=== PATIENT | female | born 1990 | race Caucasian/White ===

== ENCOUNTER 2017-11-29 10:06 | Emergency (ER) | payer SELFPAY ==
[2017-11-29 10:22] VITALS: BP 139/64; TEMP 97.5; O2SAT 98
[2017-11-29] MEDS ORDERED: TETRACAINE HCL 0.5% OPHTH SOL 1 DROP ONE (10:34)
--- NOTE | 2017-11-29 11:02 | ED.PDOC ---
History of Present Illness - General Chief Complaint: Eye Problems Stated Complaint: redness to right eye Time Seen by Provider: 11/29/17 10:23 Source: patient Exam Limitations: no limitations - History of Present Illness Initial Comments: Patient presents with right eye redness and pain since yesterday. She awoke this morning and it was more watery than before. There has been no green or purulent exudate. She says that it hurts when she "move" the eye. She also says that the pain goes from a "2" to a "7" when she looks at light. She has recently had an upper respiratory infections with green and clear nasal exudates. Denies previous episodes. 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 No other complaints. Timing/Duration: 24 hours Severity: moderate Improving Factors: rest Worsening Factors: movement Associated Symptoms: denies symptoms Allergies/Adverse Reactions: Allergies NO KNOWN ALLERGY Allergy (Verified 11/29/17 10:15) Home Medications: Ambulatory Orders NK [NK] 11/29/17 Review of Systems - Review of Systems Constitutional: States: no symptoms reported EENTM: States: see HPI Respiratory: States: no symptoms reported Cardiology: States: no symptoms reported Gastrointestinal/Abdominal: States: no symptoms reported Genitourinary: States: no symptoms reported Musculoskeletal: States: no symptoms reported Skin: States: no symptoms reported Neurological: States: no symptoms reported Endocrine: States: no symptoms reported Hematologic/Lymphatic: States: no symptoms reported Past Medical History (General) - Patient Medical History Hx Cardiac Disorders: No Hx Hypertension: No Hx Thyroid Disease: No Surgical History: other - Social History Hx Tobacco Use: Yes Family Medical History - Family History Mother Family History: No Known Physical Exam - Physical Exam General Appearance: Alert Eye Exam: right other - injected right sclera, bilateral normal - PERRLA, not mid-position, globe not hard to touch Ears, Nose, Throat: normal ENT inspection Neck: non-tender, full range of motion, supple Respiratory: lungs clear Cardiovascular/Chest: regular rate, rhythm Progress - Progress Progress: 11/29/17 10:58 Patient did not have jaw claudication nor right temporal headache. She is also not in the normal age range for temporal arteritis. However, I stressed the need for her to get tonometry and slit lamp exam due to her pain and photophobia. We do not have a working tonometer here. I suggested that she go to [facility] in [facility] so an opthmalmologist can examine her. She said she didn't have time to go to [facility] and that this was a "wasted trip". I assured her that the trip to [place] would be worth it but she could also go to other nearby [facility] and home hospitals who may have tonometer and/or opthalmology. I offered to call any hospital of her choice and arrange for her to be seen today. The patient was visibly angry at staff and left AMA. Departure - Departure Clinical Impression: Acute eye pain Disposition: Left Against Medical Advice Condition: Fair Departure Forms: ED Discharge - Pt. Copy, Patient Portal Self Enrollment Diet: other Activity: other Home Medications: Ambulatory Orders NK [NK] 11/29/17
== END 2017-11-29 10:45 | disposition left against medical advice (07) ==
LOC: ER 10:06
DX: H57.11 Ocular pain, right eye (principal); H53.141 Visual discomfort, right eye; Z53.29 Procedure and treatment not carried out because of patient's decision for other reasons; Z87.891 Personal history of nicotine dependence

== ENCOUNTER 2018-04-13 02:50 | Emergency (ER) | payer SELFPAY ==
[2018-04-13] MEDS ORDERED: SODIUM CHLORIDE 0.9% 1000ML 1,000 ML IVS ONE (03:09)
[2018-04-13] MEDS ORDERED: MORPHINE SULFATE INJ 10 MG/ML VIAL IV ONE (03:09)
[2018-04-13] MEDS ORDERED: PROMETHAZINE HCL INJ 25 MG in SODIUM CHLORIDE 0.9% 50ML 50 ML IVPB ONE (03:09)
[2018-04-13] MEDS ORDERED: ALUM & MAG HYDROX-SIMETHICONE 30 ML, LIDOCAINE VISCOUS 2% 15 ML PO ONE ×2 (03:10)
[2018-04-13] MEDS ORDERED: ALUM & MAG HYDROX-SIMETHICONE 30 ML UD ONE (03:22)
[2018-04-13] MEDS ORDERED: LIDOCAINE HCL 2% (MOUTH-THROAT) 15 ML UD ONE (03:22)
[2018-04-13] MEDS ORDERED: SODIUM CHLORIDE 0.9% 50ML 50 ML ONE (03:23)
[2018-04-13] MEDS ORDERED: PROMETHAZINE HCL INJ 25 MG/ML VIAL ONE (03:23)
--- NOTE | 2018-04-13 03:52 | RAD ---
EXAM: Acute abdominal series. INDICATION: Abdominal pain, acute. COMPARISON: None. FINDINGS: Cardiac silhouette: Unremarkable. Denisse: Unremarkable. Lobar consolidation: None. Pleural effusion: None. Pneumothorax: None. Other: None. Intraperitoneal free air: Negative. Bowel: No dilated loops of small bowel or air-fluid levels. Bones: Unremarkable. Other: None. IMPRESSION: 1. Nonspecific, nonobstructed bowel gas pattern. Electronically signed by: Kavin Mercedes MD 04/13/2018 3:49 AM [facility] Workstation: [id number]
--- NOTE | 2018-04-13 05:18 | CT ---
EXAM: CT abdomen and pelvis with contrast. INDICATION: Abdominal pain, acute. TECHNIQUE: Contiguous axial CT images of the abdomen and pelvis. Intravenous contrast: Present. Oral contrast: Absent. DLP 1332 mGy-cm. This exam was performed according to our departmental dose-optimization program, which includes automated exposure control, adjustment of the mA and/or kV according to patient size and/or use of iterative reconstruction technique. COMPARISON: None. FINDINGS: Lower chest: Partially imaged. Lung bases: Unremarkable. Cardiac apex: Unremarkable. Solid abdominal viscera: Liver: Unremarkable. Gallbladder: Distended with mildly hyperemic li. No calcified stone is identified. Pancreas: Unremarkable. Spleen: Unremarkable. Adrenal glands: Unremarkable. Right kidney: No hydronephrosis. Left kidney: No hydronephrosis. Urinary bladder: Unremarkable. Abdominal aorta: Unremarkable. Peritoneal: Free fluid: Trace Free air: None. Other: No pathologic sized lymph nodes in the upper abdomen. Bowel: Stomach: Unremarkable. Small bowel: Unremarkable. Appendix: Unremarkable. Colon: Unremarkable. Rectum: Unremarkable. Uterus: Unremarkable. Bones: Unremarkable. IMPRESSION: Distended gallbladder with mildly hyperemic li. If there is concern for acute cholecystitis, an ultrasound may be useful in further evaluation. Electronically signed by: Kavin Mercedes MD 04/13/2018 5:15 AM [employer] [employer] Workstation: [employer]
[2018-04-13] MEDS ORDERED: PIPERACILLIN/TAZOBACTAM 3.375 GM in SODIUM CHLORIDE 0.9% 100ML 100 ML IVPB ONE (06:24)
[2018-04-13] MEDS ORDERED: PIPERACILLIN/TAZOBACTAM 3.375 GM VIAL IVPB ONE (06:26)
[2018-04-13] MEDS ORDERED: SODIUM CHLORIDE 0.9% 100ML 100 ML IVPB ONE (06:26)
--- NOTE | 2018-04-13 06:45 | ED.PDOC ---
History of Present Illness - General Source: patient Exam Limitations: no limitations - History of Present Illness Initial Comments: the patient is a 27-year-old female presenting to the emergency room secondary to abdominal pain and intermittent fevers for the last 2-3 days. She reports a fever up to 102 2 days ago. Abdominal pain started out as more of a generalized pain, but has started to localize more to the right upper quadrant. She has had several episodes of nausea and vomiting over the last 12 hours.she does appear to have small peritoneal irritation but pain is most exquisite over the right upper quadrant. No definite palpable mass. No bruising of the abdominal wall. She has not vomited since her arrival here. Timing/Duration: unsure Severity: severe Improving Factors: nothing Worsening Factors: eating Associated Symptoms: diaphoresis, fever/chills, loss of appetite, malaise, nausea/vomiting, weakness <Jesus Willis - Last Filed: 04/13/18 06:42> <Luke Cesar - Last Filed: 04/13/18 09:22> - General Chief Complaint: Abdominal Pain Stated Complaint: RUQ pain radiating to the back onset 20-2099 Time Seen by Provider: 04/13/18 02:52 - History of Present Illness Allergies/Adverse Reactions: Allergies NO KNOWN ALLERGY Allergy (Verified 04/13/18 03:07) Home Medications: Ambulatory Orders Acetaminophen W/ Codeine [Tylenol w/Codeine 300-30 mg] 1 tab PO Q4HR #20 tab 04/13/18 Ampicillin 500 mg PO Q6HRS 10 Days #40 cap 04/13/18 Review of Systems - Review of Systems Constitutional: States: chills, fever, malaise, weakness - generalized EENTM: States: no symptoms reported Respiratory: States: no symptoms reported Cardiology: States: no symptoms reported Gastrointestinal/Abdominal: States: abdominal pain, nausea, vomiting. Denies: constipation, diarrhea Musculoskeletal: States: no symptoms reported Skin: States: no symptoms reported Neurological: States: no symptoms reported Endocrine: States: no symptoms reported All other Systems: No Change from Baseline <Jesus Willis - Last Filed: 04/13/18 06:42> Past Medical History (General) - Patient Medical History Hx Seizures: No Hx Stroke: No Hx Dementia: No Hx Asthma: No Hx of COPD: No Hx Cardiac Disorders: No Hx Congestive Heart Failure: No Hx Pacemaker: No Hx Hypertension: No Hx Thyroid Disease: No Hx Diabetes: No Hx Gastroesophageal Reflux: No Hx Renal Disease: No Hx Cancer: No Hx of HIV: No Hx Hepatitis C: No Hx MRSA: No Surgical History: other - Vaccination History Hx Tetanus, Diphtheria Vaccination: Yes Hx Influenza Vaccination: No - Social History Hx Tobacco Use: Yes - vapes - Female History Patient is a Female of Child Bearing Age (10 -59 yrs old): Yes <Jesus Willis - Last Filed: 04/13/18 06:42> Family Medical History - Family History Mother Family History: No Known <Jesus Willis - Last Filed: 04/13/18 06:42> Physical Exam - Physical Exam General Appearance: Alert, Obvious distress Eye Exam: bilateral normal Ears, Nose, Throat: hearing grossly normal, normal ENT inspection Neck: full range of motion, supple Respiratory: lungs clear, normal breath sounds, no respiratory distress, no accessory muscle use Cardiovascular/Chest: normal peripheral pulses, regular rate, rhythm, no edema Peripheral Pulses: radial,right: 2+, radial,left: 2+, dorsalis pedis,right: 2+, dorsalis pedis,left: 2+ Gastrointestinal/Abdominal: other - see history of present illness. 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 She is afebrile here but she has had Motrin. The patient has received IV fluids as well as stomach medications and anti- emetics. White blood cell count was not markedly elevated and the CT scan is somewhat difficult. The physical exam is highly concerning for gallbladder disease, so we will be holding the patient to obtain a right upper quadrant ultrasound while she is getting a dose of Zosyn this morning. Depending upon the results she may yet need evaluation with General surgery. Continue current medications. Continue hydration. Nothing by mouth status for now. Dr. Cesar will be assuming care. - Results/Orders Results/Orders: CT scan abdomen and pelvis shows mild hyperemia of the gallbladder wall. right upper quadrant ultrasound is recommended for further evaluation. 04/13/18 06:35 BLOOD CULTURE Stat Laboratory Results - last 24 hr 04/13/18 04/13/18 04/13/18 03:08 03:08 03:09 WBC RBC Hgb Hct MCV MCH MCHC RDW Plt Count MPV Absolute Neuts (auto) Absolute Lymphs (auto) Absolute Monos (auto) Absolute Eos (auto) Absolute Basos (auto) Neutrophils % Lymphocytes % Monocytes % Eosinophils % Basophils % Sodium 136 Potassium 3.7 Chloride 105 Carbon Dioxide 21 Anion Gap 13.7 BUN 11 Creatinine 0.76 BUN/Creatinine Ratio 14.5 Random Glucose 117 H Serum Osmolality 272.4 L Lactic Acid 0.8 Calcium 8.7 Total Bilirubin 0.3 AST 60 H ALT 77 H Alkaline Phosphatase 71 Serum Total Protein 7.4 Albumin 3.8 Globulin 3.6 H Albumin/Globulin Ratio 1.1 Amylase 29 Lipase 34 Serum HCG, Qual Negative Urine Color Urine Appearance Urine pH Ur Specific [place] Urine Protein Urine Glucose (UA) Urine Ketones Urine Blood Urine Nitrite Urine Bilirubin Urine Urobilinogen Ur Leukocyte Esterase Urine RBC Urine WBC Ur Epithelial Cells Urine Bacteria 04/13/18 04/13/18 03:15 04:52 WBC 4.6 L RBC 4.54 Hgb 13.1 Hct 39.3 MCV 86.7 MCH 28.9 MCHC 33.3 RDW 12.6 Plt Count 227 MPV 11.3 H Absolute Neuts (auto) 2.20 Absolute Lymphs (auto) 1.80 Absolute Monos (auto) 0.40 Absolute Eos (auto) 0.10 Absolute Basos (auto) 0.00 Neutrophils % 48.9 Lymphocytes % 40.0 Monocytes % 8.6 Eosinophils % 2.2 Basophils % 0.3 Sodium Potassium Chloride Carbon Dioxide Anion Gap BUN Creatinine BUN/Creatinine Ratio Random Glucose Serum Osmolality Lactic Acid Calcium Total Bilirubin AST ALT Alkaline Phosphatase Serum Total Protein Albumin Globulin Albumin/Globulin Ratio Amylase Lipase Serum HCG, Qual Urine Color Yellow Urine Appearance Clear Urine pH 6.5 Ur Specific [place] 1.010 Urine Protein Negative Urine Glucose (UA) Negative Urine Ketones Negative Urine Blood Moderate H Urine Nitrite Negative Urine Bilirubin Negative Urine Urobilinogen 0.2 Ur Leukocyte Esterase Negative Urine RBC 3-5 H Urine WBC 0 Ur Epithelial Cells 3-5 Urine Bacteria 0 <Jesus Willis - Last Filed: 04/13/18 06:42> - Results/Orders Results/Orders: Test result discuss with patient and also with Surgeon Dr. Jamison patient no longer hurting and will be followed up outpatient <Luke Cesar - Last Filed: 04/13/18 09:22> Departure <Jesus Willis - Last Filed: 04/13/18 06:42> - Departure Time of Disposition: 09:14 Diet: bland diet, other - Avoid greasy /spicy foods <Luke Cesar - Last Filed: 04/13/18 09:22> - Departure Clinical Impression: Abdominal pain Qualifiers: Abdominal location: right upper quadrant Qualified Code(s): R10.11 - Right upper quadrant pain Cholecystitis, acute with cholelithiasis Qualifiers: Biliary obstruction: without biliary obstruction Qualified Code(s): K80.00 - Calculus of gallbladder with acute cholecystitis without obstruction Disposition: Discharge to Home or Self Care Condition: Fair Departure Forms: ED Discharge - Pt. Copy, Patient Portal Self Enrollment Instructions: DI for Abdominal Pain-Adult, Gallstones (DC), Gallstones Prescriptions: Acetaminophen W/ Codeine [Tylenol w/Codeine 300-30 mg] 1 tab PO Q4HR #20 tab Ampicillin 500 mg PO Q6HRS 10 Days #40 cap Home Medications: Ambulatory Orders Acetaminophen W/ Codeine [Tylenol w/Codeine 300-30 mg] 1 tab PO Q4HR #20 tab 04/13/18 Ampicillin 500 mg PO Q6HRS 10 Days #40 cap 04/13/18 Additional Instructions: Return to Emergency Room[facility] [place] if symptoms worsens;Make an appointment with office today 13 Apr 2018
--- NOTE | 2018-04-13 08:51 | US ---
EXAM DESCRIPTION: Abdomen,Limited CLINICAL HISTORY: 27 years Female, suspect sahil , ruq pain, mild lft elev COMPARISON: CT abdomen and pelvis 04/13/2018 TECHNIQUE: Multiple sonographic images of the abdomen with color Doppler analysis. FINDINGS: Liver: The liver measures 16.6 cm. Parenchymal echogenicity is normal. The liver demonstrates a normal morphology. No hepatic masses. Biliary Tree: The gallbladder contains a gallstone measuring up to 2.4 cm. Gallbladder wall thickness measures 6 mm. No intrahepatic biliary dilatation. The common bile duct measures 4 mm. Pancreas: The visualized portions of the pancreas are normal. Right kidney: The right kidney is normal in size and location without hydronephrosis. Vasculature: The upper abdominal aorta and IVC are unremarkable. Abdominal cavity: There is no ascites. IMPRESSION: 1. Sonographic findings consistent with acute calculus cholecystitis. 2. Hepatomegaly. Electronically signed by: Murtaza Flores MD 04/13/2018 8:47 AM [employer]
[2018-04-13 09:44] VITALS: BP 107/65; TEMP 98.1; O2SAT 99
== END 2018-04-13 09:44 | disposition home or self-care (01) ==
LOC: ER 02:50
DX: K80.00 Calculus of gallbladder with acute cholecystitis without obstruction (principal); F17.290 Nicotine dependence, other tobacco product, uncomplicated
CPT/HCPCS: 36415; 74019; 74177; 76775; 80053; 81001; 82150; 83605; 83690; 84703; 85025; 87040; A4216; J2270; J2543; J2550; J7030; J7050

== ENCOUNTER 2018-10-05 01:34 | Emergency (ER) | payer SELFPAY ==
[2018-10-05 01:48] VITALS: TEMP 97.2
[2018-10-05] MEDS ORDERED: MORPHINE SULFATE INJ 10 MG/ML VIAL IV ONE (01:55)
[2018-10-05] MEDS ORDERED: PROMETHAZINE HCL INJ 25 MG in SODIUM CHLORIDE 0.9% 50ML 50 ML IVPB ONE (01:55)
[2018-10-05] MEDS ORDERED: SODIUM CHLORIDE 0.9% 1000ML 1,000 ML IVS ONE (01:55)
[2018-10-05] MEDS ORDERED: PIPERACILLIN/TAZOBACTAM 3.375 GM in SODIUM CHLORIDE 0.9% 100ML 100 ML IVPB ONE (01:57)
[2018-10-05] MEDS ORDERED: PIPERACILLIN/TAZOBACTAM 3.375 GM VIAL IVPB ONE (02:00)
[2018-10-05] MEDS ORDERED: PROMETHAZINE HCL INJ 25 MG/ML VIAL ONE (02:00)
[2018-10-05] MEDS ORDERED: SODIUM CHLORIDE 0.9% 100ML 100 ML IVPB ONE (02:01)
[2018-10-05] MEDS ORDERED: SODIUM CHLORIDE 0.9% 50ML 50 ML ONE (02:01)
--- NOTE | 2018-10-05 03:02 | RAD ---
CLINICAL HISTORY: abd pain nv, 4 hours COMPARISON: 04/13/2018. TECHNIQUE: XR ABDOMEN SUPINE AND ERECT WITH CHEST (ABD ACUTE SERIES) 10/05/2018 1:55 AM CDT FINDINGS: Bowel gas pattern is nonspecific. There are no abnormal radiopaque foreign bodies or abnormal calcifications. Osseous structures are grossly unremarkable. The heart is normal in size. Lungs are clear. IMPRESSION: No bowel obstruction. Electronically signed by: Jung Winn MD 10/05/2018 3:00 AM CDT
[2018-10-05] MEDS ORDERED: POTASSIUM CHLORIDE ELIXIR 20 MEQ/15 ML UD PO ONE (04:01)
--- NOTE | 2018-10-05 04:07 | ED.PDOC ---
History of Present Illness - General Source: patient Exam Limitations: no limitations - History of Present Illness Initial Comments: the patient is a 28-year-old female presenting to emergency room secondary to recurrence of severe right upper quadrant pain with some nausea and vomiting starting about 4 or 5 hours prior. No syncope. No definite fever. The patient has a known large gallstone and has had cholecystitis in the past that was treated with antibiotics. She was evaluated with at the time. Pain is again recurred in the right upper quadrant. No diarrhea. No abdominal pain elsewhere. No syncope or near syncope. No chest pain. Timing/Duration: 4-6 hours Severity: moderate Improving Factors: nothing Worsening Factors: eating Associated Symptoms: loss of appetite, malaise, nausea/vomiting <Jesus Willis - Last Filed: 10/05/18 06:52> <Nick Farah - Last Filed: 10/05/18 10:13> - General Chief Complaint: Abdominal Pain Stated Complaint: RUQ pain, pain goes across abd and back Time Seen by Provider: 10/05/18 01:48 - History of Present Illness Allergies/Adverse Reactions: Allergies NO KNOWN ALLERGY Allergy (Verified 10/05/18 01:48) Home Medications: Ambulatory Orders Dicyclomine HCl [Bentyl] 20 mg PO Q6HR PRN #20 tab 10/05/18 Review of Systems - Review of Systems Constitutional: States: no symptoms reported EENTM: States: no symptoms reported Respiratory: States: no symptoms reported Cardiology: States: no symptoms reported Gastrointestinal/Abdominal: States: see HPI Genitourinary: States: no symptoms reported Musculoskeletal: States: no symptoms reported Skin: States: no symptoms reported Neurological: States: no symptoms reported Endocrine: States: no symptoms reported All other Systems: No Change from Baseline <Jesus Willis - Last Filed: 10/05/18 06:52> Past Medical History (General) - Patient Medical History Hx Seizures: No Hx Stroke: No Hx Dementia: No Hx Asthma: No Hx of COPD: No Hx Cardiac Disorders: No Hx Congestive Heart Failure: No Hx Pacemaker: No Hx Hypertension: No Hx Thyroid Disease: No Hx Diabetes: No Hx Gastroesophageal Reflux: No Hx Renal Disease: No Hx Cancer: No Hx of HIV: No Hx Hepatitis C: No Hx MRSA: No Surgical History: no surgical history - Vaccination History Hx Tetanus, Diphtheria Vaccination: Yes Hx Influenza Vaccination: No Hx Pneumococcal Vaccination: No - Social History Hx Tobacco Use: Yes - vapes - Female History Hx Last Menstrual Period: 09/17/18 <Jesus Willis - Last Filed: 10/05/18 06:52> Family Medical History - Family History Mother Family History: No Known <Jesus Willis - Last Filed: 10/05/18 06:52> Physical Exam - Physical Exam General Appearance: Alert, Anxious Eye Exam: bilateral normal Ears, Nose, Throat: hearing grossly normal, normal ENT inspection Neck: full range of motion, supple Respiratory: lungs clear, normal breath sounds, no respiratory distress, no accessory muscle use Cardiovascular/Chest: normal peripheral pulses, regular rate, rhythm, no edema Peripheral Pulses: radial,right: 2+, radial,left: 2+, dorsalis pedis,right: 2+, dorsalis pedis,left: 2+ Gastrointestinal/Abdominal: soft, other - right upper quadrant tenderness to palpation Rectal Exam: deferred Back Exam: no CVA tenderness, no vertebral tenderness Extremity: normal range of motion, non-tender, normal inspection, no pedal edema, normal capillary refill 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 It is again suspected that she has an acute calculus cholecystitis. She is being hydrated. She has received a dose of Phenergan and morphine and is feeling significantly better as a result. She did receive a blood culture. She has been started on Zosyn. We will plan on obtaining a right upper quadrant ultrasound in the morning when it is available. After that, general surgery can be contacted for their opinion on this patient. it may be worth repeating liver function tests in the morning due to the short duration of her symptoms. 10/05/18 04:10 10/05/18 06:53 - Results/Orders Results/Orders: acute abdominal series appears benign. 10/05/18 02:20 BLOOD CULTURE Stat Laboratory Results - last 24 hr 10/05/18 10/05/18 10/05/18 01:55 01:55 02:02 WBC 13.4 H RBC 4.28 Hgb 12.8 Hct 37.6 MCV 87.8 MCH 29.9 MCHC 34.1 RDW 13.0 Plt Count 241 MPV 11.5 H Absolute Neuts (auto) 8.70 H Absolute Lymphs (auto) 3.60 H Absolute Monos (auto) 0.80 Absolute Eos (auto) 0.20 Absolute Basos (auto) 0.20 H Neutrophils % 64.6 Lymphocytes % 26.7 Monocytes % 6.0 Eosinophils % 1.5 Basophils % 1.2 Sodium Potassium Chloride Carbon Dioxide Anion Gap BUN Creatinine BUN/Creatinine Ratio Random Glucose Serum Osmolality Lactic Acid Calcium Total Bilirubin AST ALT Alkaline Phosphatase Serum Total Protein Albumin Globulin Albumin/Globulin Ratio Amylase Lipase Urine Color Yellow Urine Appearance Clear Urine pH 6.5 Ur Specific [place] 1.020 Urine Protein Negative Urine Glucose (UA) Negative Urine Ketones Negative Urine Blood Trace-lysed H Urine Nitrite Negative Urine Bilirubin Negative Urine Urobilinogen 0.2 Ur Leukocyte Esterase Negative Urine RBC 0 Urine WBC 0 Ur Epithelial Cells 5-10 Urine Bacteria Rare Urine HCG, Qual Negative 10/05/18 10/05/18 10/05/18 02:20 02:20 02:20 WBC RBC Hgb Hct MCV MCH MCHC RDW Plt Count MPV Absolute Neuts (auto) Absolute Lymphs (auto) Absolute Monos (auto) Absolute Eos (auto) Absolute Basos (auto) Neutrophils % Lymphocytes % Monocytes % Eosinophils % Basophils % Sodium 137 Potassium 3.1 L Chloride 106 Carbon Dioxide 23 Anion Gap 11.1 L BUN 10 Creatinine 0.94 BUN/Creatinine Ratio 10.6 Random Glucose 91 Serum Osmolality 272.4 L Lactic Acid 0.7 Calcium 8.8 Total Bilirubin 0.5 AST 24 ALT 18 Alkaline Phosphatase 60 Serum Total Protein 6.7 Albumin 3.9 Globulin 2.8 Albumin/Globulin Ratio 1.4 Amylase 21 L Lipase 30 Urine Color Urine Appearance Urine pH Ur Specific [place] Urine Protein Urine Glucose (UA) Urine Ketones Urine Blood Urine Nitrite Urine Bilirubin Urine Urobilinogen Ur Leukocyte Esterase Urine RBC Urine WBC Ur Epithelial Cells Urine Bacteria Urine HCG, Qual <Jesus Willis - Last Filed: 10/05/18 06:52> - Progress Progress: 10/05/18 10:02 PT FEELS MUCH BETTER. ABDOMEN IS SOFT NTTP. SHE DOES C/O SOME RESIDUAL PAIN. ADVISED WE CONTACT SURGERY HOWEVER PT DOES NOT WANT ANY SURGERY AT THIS TIME AND PREFERS TO GO HOME. ADVISED HER TO STAY ON CLEAR LIQUIDS FOR 48 HOURS, IF PAIN CONTINUES, WORSENS OR SHE DEVELOPS FEVER, N/V. SHE AGREES. - EKG/XRAY/CT Xray Comments: ABD SONO, THICKENED GB WALL, NO FREE FLUID NL CBD <Nick Farah - Last Filed: 10/05/18 10:13> Departure <Jesus Willis - Last Filed: 10/05/18 06:52> - Departure Time of Disposition: 10:08 <Nick Farah - Last Filed: 10/05/18 10:13> - Departure Clinical Impression: Hypokalemia Calculus of gallbladder with cholecystitis Qualifiers: Cholecystitis acuity: acute and chronic Biliary obstruction: without biliary obstruction Qualified Code(s): K80.12 - Calculus of gallbladder with acute and chronic cholecystitis without obstruction Disposition: Discharge to Home or Self Care Condition: Good Departure Forms: ED Discharge - Pt. Copy, Patient Portal Self Enrollment Instructions: Gallstones (DC) Prescriptions: Dicyclomine HCl [Bentyl] 20 mg PO Q6HR PRN #20 tab PRN Reason: Abdominal Cramping Home Medications: Ambulatory Orders Dicyclomine HCl [Bentyl] 20 mg PO Q6HR PRN #20 tab 10/05/18
[2018-10-05] MEDS ORDERED: KCL 20 MEQ/NS 1,000 ML IVS ONE (04:08)
--- NOTE | 2018-10-05 08:47 | US ---
EXAM DESCRIPTION: Abdomen,Limited: ULTRASOUND. CLINICAL HISTORY: acute cholecystitis. Right upper quadrant abdominal pain. COMPARISON: Abdominal radiograph earlier today. Ultrasound abdomen 05/11/2018. TECHNIQUE: Transabdominal scanning: tyson-scale and Doppler modes. FINDINGS: Gallbladder: At least 2 stones in the body of the gallbladder with the largest measuring 2.3 cm. Mobile with patient change in position with acoustic shadowing. A third gallstone is in the neck of the gallbladder or cystic duct measuring 1.5 cm also with acoustic shadowing. No fluid around the gallbladder. Wall thickening 3.7 mm tender with transducer pressure. Common bile duct: caliber 4.5 mm within normal limits. Liver: normal echogenicity; contour liver capsule smooth where seen. No fluid around the liver. Intrahepatic biliary ducts normal caliber. Doppler hepatopedal flow and normal caliber portal vein.. Long axis right lobe 16.4 cm. Pancreas: normal size and echogenicity. Duct not seen. Proximal abdominal aorta: Not seen.. IVC: visualized and normal caliber. Right kidney: long axis measures 8.7 cm. Normal cortical Echogenicity. Normal cortical thickness. No hydronephrosis, echogenic stones, or perirenal fluid. IMPRESSION: 1. Cholelithiasis and acute cholecystitis with wall thickening, multiple stones, and tender with transducer pressure. The stone is also visible in the neck or cystic duct. No free fluid. Common bile duct not dilated. 2. Liver, pancreas,, and right kidney are unremarkable. Electronically signed by: Rubio Solis MD 10/05/2018 8:45 AM CDT
[2018-10-05 10:26] VITALS: BP 104/62; O2SAT 99
== END 2018-10-05 10:26 | disposition home or self-care (01) ==
LOC: ER 01:34
DX: K80.12 Calculus of gallbladder with acute and chronic cholecystitis without obstruction (principal); E87.6 Hypokalemia; R11.2 Nausea with vomiting, unspecified; F17.290 Nicotine dependence, other tobacco product, uncomplicated
CPT/HCPCS: 36415; 74019; 76775; 80053; 81001; 81025; 82150; 83605; 83690; 85025; 87040; A4216; J2270; J2543; J2550; J3480; J7030; J7050

== ENCOUNTER 2018-12-13 21:50 | Emergency (ER) | payer SELFPAY ==
[2018-12-13] MEDS ORDERED: ONDANSETRON INJ 4 MG/2 ML VIAL IV ONE (21:59)
[2018-12-13] MEDS ORDERED: SODIUM CHLORIDE 0.9% (FLUSH) 10 ML SYG IV PRN (21:59)
[2018-12-13] MEDS ORDERED: ACETAMINOPHEN IV 1000MG 1,000 MG in PREMIX BOTTLE 1 BOTTLE IVPB ONE (22:00)
[2018-12-13 22:03] VITALS: TEMP 98.1
--- NOTE | 2018-12-13 22:05 | ED.PDOC ---
History of Present Illness - General Chief Complaint: Abdominal Pain Stated Complaint: right upper abdomen pain Time Seen by Provider: 12/13/18 21:53 Information Source: patient Exam Limitations: no limitations - History of Present Illness Initial Comments: 28-year-old female presents to the emergency department complaining of right upper quadrant abdominal pain onset 2 hours ago. The patient has a known history of cholelithiasis and reports the pain is similar to previous episodes, but she has been unable to get her GB removed due to cost. She did see Dr. Jamison in the office at one point but has not been able to go back. She reports eating shredded chicken and broth prior to symptom onset. She denies any associated nausea, vomiting, diarrhea or fevers. Pain is waxing and waning and nothing she does seems to make it significantly better or worse, she did try [id number] ibuprofen and apple cider vinegar without improvement in her symptoms. Pain is currently rated as 7/10 in severity and described as sharp. Review of Systems - Review of Systems Constitutional: Denies: chills, fever EENTM: Denies: nose congestion, throat pain Respiratory: Denies: cough, short of breath Cardiology: Denies: chest pain, palpitations Gastrointestinal/Abdominal: States: abdominal pain, nausea. Denies: diarrhea - RUQ, vomiting Genitourinary: Denies: dysuria, hematuria Musculoskeletal: Denies: back pain, muscle pain Skin: Denies: lesions, rash Neurological: Denies: headache, numbness, weakness Past Medical History (General) - Patient Medical History Hx Seizures: Yes - 1 age 18 Hx Stroke: No Hx Dementia: No Hx Asthma: No Hx of COPD: No Hx Cardiac Disorders: No Hx Congestive Heart Failure: No Hx Pacemaker: No Hx Hypertension: No Hx Thyroid Disease: No Hx Diabetes: No Hx Gastroesophageal Reflux: No Hx Renal Disease: No Hx Cancer: No Hx of HIV: No Hx Hepatitis C: No Hx MRSA: No Surgical History: no surgical history - Vaccination History Hx Tetanus, Diphtheria Vaccination: Yes Hx Influenza Vaccination: No Hx Pneumococcal Vaccination: No - Social History Hx Tobacco Use: Yes - vapes - Female History Hx Last Menstrual Period: 09/17/18 Family Medical History - Family History Mother Family History: No Known Physical Exam - Physical Exam General Appearance: Alert, Well Developed, Well Nourished Eyes, Ears, Nose, Throat Exam: PERRL/EOMI, normal ENT inspection, pharynx normal Neck: full range of motion, normal inspection Respiratory: lungs clear, normal breath sounds, no respiratory distress Cardiovascular/Chest: regular rate, rhythm, no edema, no murmur Gastrointestinal/Abdominal: soft, tenderness - RUQ, other Back Exam: normal inspection Extremity: normal range of motion, normal inspection, no pedal edema Neurologic: alert, oriented x 3, other - Moves all extremities without focal deficits. Comments: Triage Vital Signs 12/13/18 21:55 Temperature 98.1 F Pulse Rate [ 74 monitor] Respiratory 20 Rate Blood Pressure 100/79 [Left Arm] O2 Sat by Pulse 99 Oximetry Progress - Progress Progress: 12/13/18 22:13 Old record review: Patient was seen in 03/2018 and 10/05/18 for right upper qu adrant abdominal pain. Laboratory data from 10/04 revealed a mild leukocytosis and liver function and lipase. Right upper quadrant ultrasound from 10/04 showed cholelithiasis with acute cholecystitis and gallbladder wall thickening with multiple stones. There was no common bile duct dilation. Patient refused surgical consultation and was discharged home with prescription for Bentyl. 12/13/18 22:57 Pt recheck. Lab results discussed. Pt says pain slightly improved to 4/10 at this time. Will add toradol. CT results pending at this time. 12/13/18 23:31 Pt recheck: Updated pt on CT findings. Repeat exam pt with no lower abd TTP, pain remains in RUQ and I do not think that pelvic imaging is indicated ad this time. She was able to get a ride so will give narcotic pain meds now. Discussed plan to call [facility] consultant surgeon. 12/13/18 23:39 Spoke with José Miguel Oropeza universal branch consultant for general surgery. Recommends pain control in ED, pain and nausea meds at home and have pt call office tomorrow. He will have office geriatric social work professor work with pt to see what arrangements can be made to facilitate cholecystectomy. 12/13/18 23:56 Patient recheck: Pain improved after fentanyl. Updated pt on phone conversation and plan for discharge and outpatient follow-up. The patient was encouraged to call Dr. Valdez's office as soon as possible. She was given biliary colic discharge instructions as well as instructions on low fat diet. She was told to return to the emergency department for severe or worsening pain, fevers, vomiting or any other concerning signs or symptoms. The patient has voiced understanding and agrees with the treatment plan. - Results/Orders Results/Orders: 12/13/18 21:59 IV Care:Saline Lock per Protoc QSHIFT Sodium Chloride 0.9% (Flush) [Saline Flush Syringe] 10 ml IV PRN PRN EKG Assessment ONCE URINALYSIS Stat 12/13/18 22:00 EKG STAT 12/13/18 22:09 Hold Metformin x 48Hrs [id number] Abdomen/Pelvis w/Contrast [CT] Stat Laboratory Results - last 24 hr 12/13/18 12/13/18 12/13/18 22:10 22:10 22:10 WBC 9.5 RBC 4.48 Hgb 13.1 Hct 38.8 MCV 86.6 MCH 29.3 MCHC 33.8 RDW 13.2 Plt Count 245 MPV 11.7 H Absolute Neuts (auto) 5.80 Absolute Lymphs (auto) 2.80 Absolute Monos (auto) 0.60 Absolute Eos (auto) 0.20 Absolute Basos (auto) 0.10 Neutrophils % 60.9 Lymphocytes % 29.3 Monocytes % 6.4 Eosinophils % 2.5 Basophils % 0.9 Sodium 134 L Potassium 3.7 Chloride 106 Carbon Dioxide 18 L Anion Gap 13.7 BUN 7 Creatinine 0.84 BUN/Creatinine Ratio 8.3 L Random Glucose 108 H Serum Osmolality 266.7 L Calcium 8.8 Total Bilirubin 0.4 Direct Bilirubin 0.1 Indirect Bilirubin 0.3 AST 27 ALT 19 Alkaline Phosphatase 61 Serum Total Protein 7.0 Albumin 3.9 Lipase 36 Serum HCG, Qual Negative EKG: Interpreted by myself at 2254. NSR rate 69. Nl axis, nl intervals. No ST elevation and non-specific ST-T changes. CT Abd/Pelvis: IMPRESSION: Multiple gallstones in the gallbladder. If there is clinical concern for the possibility of cholecystitis, sonography or nuclear medicine imaging could be obtained to better evaluate. Increased density fluid in the pelvis suggesting a small amount of hemoperitoneum. This could be from a ruptured ovarian cyst. Sonography could be obtained to better evaluate the pelvis if indicated. Electronically signed by: Irvin Dejesus MD 12/13/2018 11:24 PM CDT - Consult/PCP Time Called: 23:36 Consult/PCP: Dr. Hernandez, universal branch consultant for general surgery Departure - Departure Clinical Impression: Biliary colic, Ruptured ovarian cyst, RUQ abdominal pain Cholelithiasis Qualifiers: Cholelithiasis location: gallbladder Cholecystitis presence: without cholecystitis Biliary obstruction: without biliary obstruction Qualified Code(s): K80.20 - Calculus of gallbladder without cholecystitis without obstruction Time of Disposition: 23:56 Disposition: Discharge to Home or Self Care Condition: Fair Departure Forms: ED Discharge - Pt. Copy, Patient Portal Self Enrollment Instructions: Ovarian Cysts, Gallstones Diet: other - Low fat Referrals: Marcus Valdez MD [Active Staff] - 1-2 Days [facility] [Outside] - 1-5 Days (To establish care with a PCP) Prescriptions: Acetaminophen W/ Codeine [Tylenol W/ CODEINE #3] 1 ea PO Q8H PRN #15 PRN Reason: Pain Hyoscyamine Sulfate [Levsin] 0.125 mg PO Q8H PRN #15 tab PRN Reason: Pain Ibuprofen 800 mg PO Q8H PRN #30 tab PRN Reason: Pain Ondansetron HCl [Zofran] 4 mg PO Q8H PRN #10 tab PRN Reason: Nausea Home Medications: Ambulatory Orders Acetaminophen W/ Codeine [Tylenol W/ CODEINE #3] 1 ea PO Q8H PRN #15 12/13/18 Hyoscyamine Sulfate [Levsin] 0.125 mg PO Q8H PRN #15 tab 12/13/18 Ibuprofen 800 mg PO Q8H PRN #30 tab 12/13/18 Ondansetron HCl [Zofran] 4 mg PO Q8H PRN #10 tab 12/13/18 Additional Instructions: Take medications as directed. Call Dr. Valdez's office tomorrow to arrange follow up as soon as possible. Return to the ED for significant worsening of pain, fevers, vomiting or other concerns. Comments: DO Zak Feliz#[id number]
[2018-12-13] MEDS ORDERED: ACETAMINOPHEN IV 1000MG 100 ML ONE (22:15)
[2018-12-13 23:00] VITALS: O2SAT 98
[2018-12-13] MEDS ORDERED: KETOROLAC TROMETHAMINE INJ 30 MG/ML VIAL IV ONE (23:00)
--- NOTE | 2018-12-13 23:26 | CT ---
EXAM DESCRIPTION: Abdomen/Pelvis w/Contrast CLINICAL HISTORY: 28 years Female RUQ pain COMPARISON: 04/13/2018. TECHNIQUE: Contiguous axial images obtained through the abdomen and pelvis following IV contrast. Reformatted images obtained. This exam was performed according to our department optimization program which includes automated exposure control, adjustment of the mA and/or kv according to patient size and/or use of iterative reconstruction technique. FINDINGS: The lung bases are clear. The liver appears unremarkable. The spleen and pancreas appear unremarkable. No adrenal masses. The kidneys appear unremarkable. No hydronephrosis. Gallstones in the gallbladder. No aneurysmal dilatation of the aorta. No bowel obstruction. The appendix appears unremarkable. There is increased density free fluid in the pelvis suggesting a small amount of hemoperitoneum. This could be from a ruptured ovarian cyst. Degenerative changes in the spine. IMPRESSION: Multiple gallstones in the gallbladder. If there is clinical concern for the possibility of cholecystitis, sonography or nuclear medicine imaging could be obtained to better evaluate. Increased density fluid in the pelvis suggesting a small amount of hemoperitoneum. This could be from a ruptured ovarian cyst. Sonography could be obtained to better evaluate the pelvis if indicated. Electronically signed by: Irvin Dejesus MD 12/13/2018 11:24 PM CDT
[2018-12-13] MEDS ORDERED: fentaNYL CITRATE INJ 50 MCG/ML AMP IV ONE (23:30)
[2018-12-13 23:41] VITALS: BP 131/79
== END 2018-12-14 00:14 | disposition home or self-care (01) ==
LOC: ER 21:50
DX: K80.20 Calculus of gallbladder without cholecystitis without obstruction (principal); N83.209 Unspecified ovarian cyst, unspecified side; F17.290 Nicotine dependence, other tobacco product, uncomplicated
CPT/HCPCS: 74177; 80048; 80076; 81001; 83690; 84703; 85025; 93005; J1885; J2405; J3010

== ENCOUNTER 2019-11-03 00:53 | Emergency (ER) | payer SELFPAY ==
[2019-11-03] MEDS: SODIUM CHLORIDE 0.9% 1000ML 1,000 ML IVS ONE ×2 (01:26→02:26)
[2019-11-03] MEDS: PROMETHAZINE HCL INJ 25 MG in SODIUM CHLORIDE 0.9% 50ML 50 ML IVPB ONE (01:26)
[2019-11-03] MEDS: KETOROLAC TROMETHAMINE INJ 30 MG/ML VIAL IV ONE (01:26)
[2019-11-03] MEDS: MORPHINE SULFATE INJ 10 MG/ML VIAL IV ONE (02:26)
[2019-11-03] MEDS: cefTRIAXone SODIUM 1 GM in SODIUM CHL 0.9% 50ML MIN-BAG+ 50 ML IVPB ONE (02:40)
[2019-11-03] MEDS ORDERED: KETOROLAC TROMETHAMINE INJ 30 MG/ML VIAL ONE (07:00)
[2019-11-03] MEDS ORDERED: DEXAMETHASONE INJ 10 MG/ML VIAL ONE (07:00)
[2019-11-03] MEDS ORDERED: ceFAZolin SODIUM 1 GM VIAL ONE (07:00)
[2019-11-03] MEDS ORDERED: MAGNESIUM SULFATE INJ 1 GM/2 ML VIAL ONE (07:00)
[2019-11-03] MEDS ORDERED: LIDOCAINE 1% 10 ML VIAL INJ ONE (07:00)
[2019-11-03] MEDS ORDERED: PROPOFOL 200 MG/20 ML VIAL IV ONE (07:00)
--- NOTE | 2019-11-03 07:02 | ED.PDOC ---
History of Present Illness - General Chief Complaint: Abdominal Pain Stated Complaint: abd pain, Hx gallstones Time Seen by Provider: 11/03/19 01:12 Source: patient Exam Limitations: no limitations - History of Present Illness Initial Comments: The patient is a 29-year-old female presented emergency room secondary to acute onset nausea vomiting and right upper quadrant pain 2 hours prior to arrival. The patient reports the pain is consistent with her previous pain from her gallbladder. The patient has had at least 4 episodes in the past and has so far deferred cholecystectomy. The patient has been on rounds of antibiotics in the past. The patient is denying any fevers. She was feeling fine until the acute onset. No significant history of any pancreatitis. No vomiting of blood or bile. Pain is fairly well localized to the epigastric and right upper quadrant. Patient is actively vomiting upon arrival. Timing/Duration: 1-3 hours Severity: severe Improving Factors: nothing Worsening Factors: eating Associated Symptoms: diaphoresis, loss of appetite, malaise, nausea/vomiting Allergies/Adverse Reactions: Allergies NO KNOWN ALLERGY Allergy (Verified 11/03/19 01:07) Home Medications: Ambulatory Orders NK 11/03/19 Review of Systems - Review of Systems Constitutional: States: malaise EENTM: States: no symptoms reported Respiratory: States: no symptoms reported Cardiology: States: no symptoms reported Gastrointestinal/Abdominal: States: see HPI Genitourinary: States: no symptoms reported Musculoskeletal: States: no symptoms reported Skin: States: no symptoms reported Neurological: States: no symptoms reported Endocrine: States: no symptoms reported All other Systems: No Change from Baseline Past Medical History (General) - Patient Medical History Hx Seizures: Yes - 1 age 18 Hx Stroke: No Hx Dementia: No Hx Asthma: No Hx of COPD: No Hx Cardiac Disorders: No Hx Congestive Heart Failure: No Hx Pacemaker: No Hx Hypertension: No Hx Thyroid Disease: No Hx Diabetes: No Hx Gastroesophageal Reflux: No Hx Renal Disease: No Hx Cancer: No Hx of HIV: No Hx Hepatitis C: No Hx MRSA: No Surgical History: other - Vaccination History Hx Tetanus, Diphtheria Vaccination: Yes - 2013 Hx Influenza Vaccination: No Hx Pneumococcal Vaccination: No - Social History Hx Tobacco Use: Yes - vapes Hx Alcohol Use: Yes - occasional - Female History Hx Last Menstrual Period: 09/17/18 Family Medical History - Family History Mother Family History: No Known Physical Exam - Physical Exam General Appearance: Alert, Anxious, Obvious distress Eye Exam: bilateral normal Ears, Nose, Throat: hearing grossly normal, normal pharynx Neck: non-tender, supple Respiratory: lungs clear, normal breath sounds, no respiratory distress, no accessory muscle use Cardiovascular/Chest: normal peripheral pulses, regular rate, rhythm, no edema Peripheral Pulses: radial,right: 2+, radial,left: 2+ Gastrointestinal/Abdominal: soft - When the patient is not throwing up, other - See history of present illness. Patient is moderately obese. Rectal Exam: deferred Back Exam: no vertebral tenderness, CVA tenderness (R) - Borderline Extremity: normal range of motion, non-tender, normal inspection, no pedal edema, normal capillary refill Neurologic: search manager II-XII nml as tested, alert, normal mood/affect, oriented x 3 Skin Exam: normal color Comments: Vital Signs - 24 hr 11/03/19 11/03/19 11/03/19 00:58 02:00 03:00 Temperature 96.6 F L 96.9 F L Pulse Rate [ 68 56 L 58 L monitor] Respiratory 20 16 16 Rate Blood Pressure 145/93 124/82 114/61 [Left Arm] O2 Sat by Pulse 100 100 98 Oximetry 11/03/19 11/03/19 11/03/19 04:00 05:00 06:00 Temperature Pulse Rate [ 61 58 L 55 L monitor] Respiratory 16 16 16 Rate Blood Pressure 109/63 101/56 115/54 [Left Arm] O2 Sat by Pulse 99 99 97 Oximetry Progress - Progress Progress: 11/03/19 07:03 The patient is a 29-year-old female presented emergency room secondary to acute onset nausea vomiting and right upper quadrant pain. This is consistent with her intermittent exacerbations of cholecystitis due to her gallstones. So far she has been able to defer surgery without serious consequences. The patient has received a couple of liters of IV fluids here as well as pain medications and nausea medications. She is starting to feel better but does still have some right upper quadrant discomfort. We are repeating laboratory work this morning to make sure there is been no significant rise in liver function tests or amylase or lipase. The patient will be receiving a right upper quadrant ultrasound once the endo tech arrives. She will likely warrant a general surgery visit at least after that is completed. The patient did receive 1 dose of Zosyn and has received one blood culture. The patient will be followed by the oncoming ER doctor. Vital signs have remained stable. [email or web address] - Results/Orders Results/Orders: Laboratory Tests 11/03/19 11/03/19 11/03/19 01:10 01:10 01:10 WBC 12.4 H RBC 4.64 Hgb 13.8 Hct 40.9 MCV 88.3 MCH 29.7 MCHC 33.6 RDW 13.4 Plt Count 244 MPV 11.2 H Absolute Neuts (auto) 7.90 H Absolute Lymphs (auto) 3.40 Absolute Monos (auto) 0.70 Absolute Eos (auto) 0.40 Absolute Basos (auto) 0.10 Neutrophils % 63.8 Lymphocytes % 27.2 Monocytes % 5.5 Eosinophils % 2.9 Basophils % 0.6 Sodium 139 Potassium 3.8 Chloride 109 Carbon Dioxide 22 Anion Gap 11.8 L BUN 16 Creatinine 0.90 BUN/Creatinine Ratio 17.8 Random Glucose 96 Serum Osmolality 278.6 Calcium 9.2 Total Bilirubin 0.6 Direct Bilirubin 0.1 Indirect Bilirubin 0.5 AST 20 ALT 13 Alkaline Phosphatase 61 Serum Total Protein 7.3 Albumin 4.4 Globulin 2.9 Albumin/Globulin Ratio 1.5 Amylase 32 Lipase 29 Serum HCG, Qual Urine Color Yellow Urine Appearance Sl cloudy Urine pH 5.5 Ur Specific [place] >= 1.030 Urine Protein Negative Urine Glucose (UA) Negative Urine Ketones Negative Urine Blood Trace-intact H Urine Nitrite Negative Urine Bilirubin Negative Urine Urobilinogen 1.0 Ur Leukocyte Esterase Small H Urine RBC 1-3 Urine WBC 3-5 H Ur Epithelial Cells 3-5 Urine Bacteria Rare 11/03/19 01:10 WBC RBC Hgb Hct MCV MCH MCHC RDW Plt Count MPV Absolute Neuts (auto) Absolute Lymphs (auto) Absolute Monos (auto) Absolute Eos (auto) Absolute Basos (auto) Neutrophils % Lymphocytes % Monocytes % Eosinophils % Basophils % Sodium Potassium Chloride Carbon Dioxide Anion Gap BUN Creatinine BUN/Creatinine Ratio Random Glucose Serum Osmolality Calcium Total Bilirubin Direct Bilirubin Indirect Bilirubin AST ALT Alkaline Phosphatase Serum Total Protein Albumin Globulin Albumin/Globulin Ratio Amylase Lipase Serum HCG, Qual Negative Urine Color Urine Appearance Urine pH Ur Specific [place] Urine Protein Urine Glucose (UA) Urine Ketones Urine Blood Urine Nitrite Urine Bilirubin Urine Urobilinogen Ur Leukocyte Esterase Urine RBC Urine WBC Ur Epithelial Cells Urine Bacteria Departure - Departure Clinical Impression: Abdominal pain Qualifiers: Abdominal location: right upper quadrant Qualified Code(s): R10.11 - Right upper quadrant pain Disposition: Discharge to Home or Self Care Departure Forms: ED Discharge - Pt. Copy, Patient Portal Self Enrollment Home Medications: Ambulatory Orders NK 11/03/19
--- NOTE | 2019-11-03 07:56 | ED.PDOC ---
History of Present Illness - General Chief Complaint: Abdominal Pain Stated Complaint: abd pain, Hx gallstones Time Seen by Provider: 11/03/19 01:12 - History of Present Illness Abdominal Pain Onset Location: RUQ Pain Radiation: back Quality: moderate Timing/Duration: 4-6 hours Improving Factors: medication Worsening Factors: eating Associated Symptoms: nausea/vomiting Review of Systems - Review of Systems Constitutional: Denies: chills, fever Respiratory: Denies: cough, short of breath Cardiology: Denies: chest pain Gastrointestinal/Abdominal: States: abdominal pain, nausea, vomiting Genitourinary: Denies: dysuria, frequency Musculoskeletal: Denies: back pain, neck pain Neurological: Denies: headache Hematologic/Lymphatic: Denies: anemia Past Medical History (General) - Patient Medical History Hx Seizures: Yes - 1 age 18 Hx Stroke: No Hx Dementia: No Hx Asthma: No Hx of COPD: No Hx Cardiac Disorders: No Hx Congestive Heart Failure: No Hx Pacemaker: No Hx Hypertension: No Hx Thyroid Disease: No Hx Diabetes: No Hx Gastroesophageal Reflux: No Hx Renal Disease: No Hx Cancer: No Hx of HIV: No Hx Hepatitis C: No Hx MRSA: No Surgical History: other - Vaccination History Hx Tetanus, Diphtheria Vaccination: Yes - 2013 Hx Influenza Vaccination: No Hx Pneumococcal Vaccination: No - Social History Hx Tobacco Use: Yes - vapes Hx Alcohol Use: Yes - occasional - Female History Hx Last Menstrual Period: 09/17/18 Family Medical History - Family History Mother Family History: No Known Physical Exam - Physical Exam General Appearance: Alert, Comfortable, No apparent distress Neck: non-tender, full range of motion, supple Respiratory: chest non-tender, lungs clear, normal breath sounds, no respiratory distress, no accessory muscle use Cardiovascular/Chest: normal peripheral pulses, regular rate, rhythm, no edema, no murmur Peripheral Pulses: 2+ Gastrointestinal/Abdominal: normal bowel sounds, soft Rectal Exam: deferred Neurologic: no motor/sensory deficits, alert, normal mood/affect, oriented x 3 Skin Exam: normal color, warm/dry Progress - Progress Progress: 11/03/19 07:48 Patient resting comfortably, patient has received 30 mg toradol, 2mg morphine, phenergan. NO peritoneal signs as of now. NO rebound or guarding. negative holguin sign. Repeat blood work pending Patient given rocephin, will add flagyl. 11/03/19 07:56 Repeat blood work shows normal lfts. Pending RUQ ultrasound and re-evaluation at that time. Declines more pain medication at this time. RUQ shows 4mm gbw, cbd 4mm, some sludge, gallstones. Will contact Dr. Jamison to discuss. Patient to OR for cholecystectomy. 11/03/19 11:05 11/03/19 06:27 Abdomen,Limited [US] Stat 11/03/19 06:42 BLOOD CULTURE Stat Laboratory Results WBC 12.4 K/mm3 (4.8-10.8) H 11/03/19 01:10 RBC 4.64 M/mm3 (4.20-5.40) 11/03/19 01:10 Hgb 13.8 gm/dL (12.0-16.0) 11/03/19 01:10 Hct 40.9 % (36.0-47.0) 11/03/19 01:10 MCV 88.3 fl (81.0-99.0) 11/03/19 01:10 MCH 29.7 pg (27.0-31.0) 11/03/19 01:10 MCHC 33.6 g/dL (33.0-37.0) 11/03/19 01:10 RDW 13.4 % (11.5-14.5) 11/03/19 01:10 Plt Count 244 K/mm3 (130-400) 11/03/19 01:10 MPV 11.2 fl (7.40-10.4) H 11/03/19 01:10 Absolute Neuts (auto) 7.90 K/uL (1.8-6.8) H 11/03/19 01:10 Absolute Lymphs (auto) 3.40 K/uL (1.0-3.4) 11/03/19 01:10 Absolute Monos (auto) 0.70 K/uL (0.2-0.8) 11/03/19 01:10 Absolute Eos (auto) 0.40 K/uL (0.0-0.4) 11/03/19 01:10 Absolute Basos (auto) 0.10 K/uL (0.0-0.1) 11/03/19 01:10 Neutrophils % 63.8 % (42.0-78.0) 11/03/19 01:10 Lymphocytes % 27.2 % (20.0-50.0) 11/03/19 01:10 Monocytes % 5.5 % (2.0-9.0) 11/03/19 01:10 Eosinophils % 2.9 % (1.0-5.0) 11/03/19 01:10 Basophils % 0.6 % (0.0-2.0) 11/03/19 01:10 Sodium 139 mmol/L (135-145) 11/03/19 06:42 Potassium 3.6 mmol/L (3.6-5.0) 11/03/19 06:42 Chloride 112 mmol/L (101-111) H 11/03/19 06:42 Carbon Dioxide 20 mmol/L (21-31) L 11/03/19 06:42 Anion Gap 10.6 (12-18) L 11/03/19 06:42 BUN 13 mg/dL (7-18) 11/03/19 06:42 Creatinine 0.82 mg/dL (0.6-1.3) 11/03/19 06:42 BUN/Creatinine Ratio 15.9 (10-20) 11/03/19 06:42 Random Glucose 86 mg/dL (70-105) 11/03/19 06:42 Serum Osmolality 277.0 mOsm/L (275-295) 11/03/19 06:42 Calcium 8.2 mg/dL (8.4-10.2) L 11/03/19 06:42 Total Bilirubin 0.5 mg/dL (0.2-1.0) 11/03/19 06:42 Direct Bilirubin 0.1 mg/dL (0-0.2) 11/03/19 01:10 Indirect Bilirubin 0.5 mg/dL (0.2-0.8) 11/03/19 01:10 AST 12 IU/L (10-42) 11/03/19 06:42 ALT 12 IU/L (10-60) 11/03/19 06:42 Alkaline Phosphatase 48 IU/L (42-121) D 11/03/19 06:42 Serum Total Protein 5.6 gm/dL (6.4-8.2) L 11/03/19 06:42 Albumin 3.3 g/dl (3.2-5.5) 11/03/19 06:42 Globulin 2.3 gm/dL (2.3-3.5) 11/03/19 06:42 Albumin/Globulin Ratio 1.4 (1.1-1.9) 11/03/19 06:42 Amylase 22 U/L (28-100) L D 11/03/19 06:42 Lipase 19 U/L (22-51) L D 11/03/19 06:42 Serum HCG, Qual Negative (NEGATIVE) 11/03/19 01:10 Urine Color Yellow (Yellow) 11/03/19 01:10 Urine Appearance Sl cloudy (Clear) 11/03/19 01:10 Urine pH 5.5 (4.5-7.8) 11/03/19 01:10 Ur Specific [place] >= 1.030 (1.005-1.030) 11/03/19 01:10 Urine Protein Negative mg/dL 11/03/19 01:10 Urine Glucose (UA) Negative mg/dL (Negative) 11/03/19 01:10 Urine Ketones Negative mg/dL (NEGATIVE) 11/03/19 01:10 Urine Blood Trace-intact (Negative) H 11/03/19 01:10 Urine Nitrite Negative 11/03/19 01:10 Urine Bilirubin Negative (NEGATIVE) 11/03/19 01:10 Urine Urobilinogen 1.0 mg/dL (0.2-1.0) 11/03/19 01:10 Ur Leukocyte Esterase Small (Negative) H 11/03/19 01:10 Urine RBC 1-3 /hpf 11/03/19 01:10 Urine WBC 3-5 /hpf H 11/03/19 01:10 Ur Epithelial Cells 3-5 /hpf 11/03/19 01:10 Urine Bacteria Rare 11/03/19 01:10 - Additional EKG/XRAY/Consults Time Called: 09:45 Consult/PCP: Dr. Jamison Departure - Departure Clinical Impression: Abdominal pain Qualifiers: Abdominal location: right upper quadrant Qualified Code(s): R10.11 - Right upper quadrant pain Cholelithiasis Qualifiers: Cholelithiasis location: gallbladder Cholecystitis presence: with cholecystitis Cholecystitis acuity: acute and chronic Biliary obstruction: without biliary obstruction Qualified Code(s): K80.12 - Calculus of gallbladder with acute and chronic cholecystitis without obstruction Disposition: Admit Patient Departure Forms: ED Discharge - Pt. Copy, Patient Portal Self Enrollment Instructions: DI for Abdominal Pain-Adult Home Medications: Ambulatory Orders NK 11/03/19
[2019-11-03] MEDS: metroNIDAZOLE IV PREMIX 500MG 500 MG in PREMIX BAG 1 BAG IVPB ONE (10:09)
--- NOTE | 2019-11-03 11:19 | US ---
EXAM DESCRIPTION: Abdomen,Limited: ULTRASOUND. CLINICAL HISTORY: ruq pain, nv COMPARISON: None. TECHNIQUE: Transabdominal scanning: tyson-scale mode. Doppler mode. FINDINGS: Gallbladder: Large gallbladder full of sludge. At least one echogenic stone with acoustic shadowing measuring 1.6 cm diameter. No fluid around the wall Wall thickening and edema 4.0 mm tender with transducer pressure. Common bile duct: caliber 4.0 mm within normal limits. Liver: normal echogenicity; contour liver capsule smooth where seen. No fluid around the liver. Intrahepatic biliary ducts normal caliber. Doppler hepatopedal flow and normal caliber portal vein.. 0.4 mm. Long axis right lobe 15.8 cm. Pancreas: normal size and echogenicity. Duct not seen. Proximal abdominal aorta: Normal caliber.. IVC: visualized and normal caliber. Right kidney: long axis measures 9.2 cm; volume 132.4 ml. Cortical echogenicity normal. Normal cortical thickness. No echogenic stones; no hydronephrosis. IMPRESSION: 1. Cholecystitis with wall thickening, edema, and tenderness with transducer pressure. At least one gallstone measuring 1.6 cm diameter. Common bile duct normal caliber. No ascites. 2. Liver and pancreas are negative. Right kidney unremarkable. Normal caliber of the proximal abdominal aorta and IVC. Electronically signed by: Rubio Solis MD 11/03/2019 11:17 AM CDT
[2019-11-03] MEDS ORDERED: SUGAMMADEX SODIUM 200 MG/2 ML VIAL IV ONE (12:25)
[2019-11-03] MEDS ORDERED: MIDAZOLAM INJ 2 MG/2 ML VIAL ONE (12:25)
[2019-11-03] MEDS ORDERED: DEXMEDETOMIDINE HCL 200 MCG/2 ML INJ IV ONE (12:26)
[2019-11-03] MEDS ORDERED: ROCURONIUM BROMIDE 10 MG/ML VIAL ONE (12:26)
[2019-11-03] MEDS ORDERED: fentaNYL CITRATE INJ 50 MCG/ML AMP ONE (12:26)
[2019-11-03] MEDS ORDERED: FAMOTIDINE 10 MG/ML ML IV ONE (12:26)
[2019-11-03] MEDS: BUPIVACAINE 0.25% W/EPI 50 ML VIAL INJ ONE (13:02)
[2019-11-03] MEDS: HEPARIN SODIUM (PORCINE) 10,000 UNITS/ML VIAL ONE (13:10)
--- NOTE | 2019-11-03 14:03 | RAD ---
EXAM DESCRIPTION: Fluoroscopy Up to 1Hr CLINICAL HISTORY: 29 years Female, IOC COMPARISON: None. TECHNIQUE: Fluoroscopic images from an intraoperative cholangiogram. Fluoroscopy time: 7.6 seconds Fluoroscopic images: 2 Total dose: 0.87 mGy IMPRESSION: Intraprocedural fluoroscopic images saved for the benefit of the surgeon. Cannulation of the cystic duct with opacification of the biliary tree. Nondilated common bile duct and without persistent filling defect or stricture. The pancreatic duct is not visualized. Please refer to procedural report for full details. Electronically signed by: Murtaza Flores MD 11/03/2019 2:02 PM CDT
--- NOTE | 2019-11-03 14:42 | OP ---
DATE OF PROCEDURE: 11/03/19 PREOPERATIVE DIAGNOSIS: 1. Right upper quadrant abdominal pain. 2. Cholelithiasis. POSTOPERATIVE DIAGNOSIS: 1. Right upper quadrant abdominal pain. 2. Cholelithiasis. 3. Chronic cholecystitis. PROCEDURE: 1. Laparoscopic cholecystectomy with intraoperative cholangiography using fluoroscopy. SURGEON: Domingo Jamison MD. SHOE STICKS REPAIRER: None. ANESTHESIA: Local infiltration of 0.25% Marcaine with epinephrine and general endotracheal anesthesia. INDICATION: The patient is a 29-year-old female who has been diagnosed previously with cholelithiasis. She has had multiple episodes of right upper quadrant pain with nausea, not necessary associated with fatty meals. She presented again to the Emergency Room early this morning with abdominal pain, had mildly elevated white count, normal liver function tests. She was held in the Emergency Room and given antibiotics, but surgery was not contacted until an ultrasound was done this morning showing cholelithiasis. Surgical consultation was obtained. The risks, benefits and alternatives to cholecystectomy were discussed and accepted. She was brought to the Surgical Suite today for cholecystectomy. FINDINGS: The gallbladder was distended with a mildly thickened wall. There was white bile. Intraoperative cholangiography revealed free flow into the duodenum with no filling defects or strictures noted. There was no significant bleeding noted in the jerilyn hepatis, no bile leak and no bleeding at the port sites or in the gallbladder bed of the liver. DESCRIPTION OF PROCEDURE: After adequate general endotracheal anesthesia was obtained, the patient was prepped and draped in the usual sterile manner. Surgical time-out was taken. The infraumbilical area was infiltrated with local anesthesia. Incision was made and dissection was carried down through the skin and subcutaneous tissue to the midline fascia. Traction sutures were placed on either side of the midline. A small incision was made in the midline fascia and the peritoneum was opened bluntly. Mya trocar was introduced under direct vision into the abdominal cavity and fixed in place with the 20 mL balloon. CO2 was then insufflated until a pressure of 12 mmHg was reached and the abdomen was tympanitic in all four quadrants. When this was done, the laparoscope was introduced. The abdominal cavity was inspected with no significant pathology other than the gallbladder. At this point, the patient was placed in reverse Trendelenburg position and turned to the left side. The upper abdominal ports were placed under direct vision in the usual manner. The gallbladder was grasped, retracted anteriorly and laterally. The neck of the gallbladder was retracted laterally. The triangle of Calot was then explored using blunt dissection. The cystic duct and cystic artery were identified and isolated. The cystic duct was hemoclipped once proximally. The cystic artery was hemoclipped twice proximally and once distally. A small incision was made in the cystic duct. The cholangiogram catheter was introduced under direct vision into the cystic duct and clipped in place. Cholangiograms were then taken using fluoroscopy which revealed free flow into the duodenum with no filling defects or strictures noted. When this was done, the cystic duct catheter was removed. The cystic duct was hemoclipped three times distally and divided between the hemoclips. The cystic artery was divided. The gallbladder was then dissected free from the gallbladder bed of the liver using electrocautery. The gallbladder was placed in an EndoCatch bag and removed from the infraumbilical port site in the usual manner under direct vision. When this was done, the subhepatic space and subphrenic space were irrigated copiously with saline. The effluent was noted to be clear. Again, the jerilyn hepatis was inspected and no bleeding or bile leak was identified. The gallbladder bed of the liver had no significant bleeding. At this point, the upper abdominal ports were removed. Adequate hemostasis was noted. At this point, the CO2, the laparoscope and the infraumbilical port were removed. The infraumbilical port site fascia was approximated with a single [id number] suture of 0 Vicryl. Subcutaneous tissue was irrigated with saline. Skin edges were approximated with 4-0 Vicryl subcuticular sutures, benzoin and Steri-Strips. Sterile dressings were applied. The patient was awakened and taken to the Recovery Room in good and stable condition. Estimated blood loss was less than 50 mL. All sponge, needle and instrument counts were correct. #[id number] MTDD
[2019-11-03 16:27] VITALS: BP 92/49; TEMP 97; O2SAT 99
== END 2019-11-03 16:21 | disposition home or self-care (01) ==
LOC: ER 00:53
DX: K80.12 Calculus of gallbladder with acute and chronic cholecystitis without obstruction (principal); R10.11 Right upper quadrant pain; R11.2 Nausea with vomiting, unspecified; F17.290 Nicotine dependence, other tobacco product, uncomplicated
CPT/HCPCS: 36415; 76000; 76775; 80053; 80076; 81001; 82150; 83690; 84703; 85025; 87040; 87086; A4216; J0690; J0696; J1100; J1644; J1885; J2250; J2270; J2550; J3010; J3475; J3490; J7030; J7050